=== PATIENT | male | born 1980 | race Caucasian/White ===

== ENCOUNTER → 2023-05-27 13:14 | Outpatient (BNVA) | payer BC, MEDICAID, SELFPAY | PROVIDERS: Referring Provider Nurse Practitioner Family; Visit Provider Nurse Practitioner Family | DX: M79.641 Pain in right hand (principal); M67.89 Other specified disorders of synovium and tendon, multiple sites | CPT/HCPCS: 73130 ==

== ENCOUNTER 2023-05-27 13:41 | Outpatient (CLI) | payer BC, MEDICAID, SELFPAY ==
--- NOTE | 2023-05-27 13:55 | XR_ITS ---
WS: [id number] Exam: XR cervical spine 3V* [id number] Date/Time of Exam: 05/27/2023 2:08 PM Reason For Exam: CERVICALGIA No fracture or dislocation. Straightening and slight reversal of the normal cervical lordosis. Disc s paces are preserved. Paraspinal soft tissues are unremarkable. The odontoid is intact. Minimal degene rative facet change. XR/XR cervical spine 3V* [id number] IMPRESSION: 1. Straightening of the C-spine and minimal facet DJD. 2. No fracture or other significant finding.
== END 2023-05-27 13:42 | disposition home or self-care (01) ==
PROVIDERS: PCP Nurse Practitioner Family; Visit Provider Nurse Practitioner Family
DX: M47.812 Spondylosis without myelopathy or radiculopathy, cervical region (principal); M54.2 Cervicalgia
CPT/HCPCS: 72040

== ENCOUNTER 2023-06-09 08:22 | Outpatient (CLI) | payer BC, MEDICAID, SELFPAY ==
--- NOTE | 2023-06-09 08:37 | US_ITS ---
WS: [id number] TESTICULAR ULTRASOUND HISTORY: BENIGN TUMOR OF TESTICLE COMPARISON: None available. TECHNIQUE: Real-time and color Doppler imaging or utilized to perform a testicular ultrasound. Right testicle: 4.7 cm x 3.4 cm x 2.2 cm. Normal size and echogenicity. No mass or torsion. Normal color Doppler is present throughout. Systolic and diastolic velocities are both present. No significant hydrocele. Right epididymis: Large cyst superior to the RIGHT testicle consistent with a spermatocele. Cyst case ures 4.5 x 2.1 x 4.8 cm. Left testicle: 4.4 cm x 2.8 cm x 2.1 cm. Normal size and echogenicity. No mass or torsion. Normal color Doppler is present throughout. Systolic and diastolic velocities are both present. No significant hydrocele. Left epididymis: Normal epididymis with no increased vascularity. US/US scrotum [id number] IMPRESSION: 1. No testicular mass or torsion. 2. Large cyst near the epididymal head. Most consistent with a spermatocele.
--- NOTE | 2023-06-09 08:45 | MR_ITS ---
WS: [id number] MRI OF THE RIGHT HAND WITHOUT GADOLINIUM ENHANCEMENT. INDICATION: Hand laceration TECHNIQUE: Coronal T1, coronal STIR, axial T1, axial T2, sagittal T2 fat sat, coronal 3-D FSPGR, and multiplanar post gadolinium imaging with fat saturation technique. FINDINGS: Some images degraded by patient motion. Palpable marker overlying the area of interest at the level o f the proximal metacarpals at the level of the 3rd digit. Mild soft tissue edema deep to the palpable marker. No drainable fluid collections. Mild edema involving the 2nd 3rd and 4th extensor compartmen t tendons with a small amount of edema along the extensor retinaculum. Extensor digitorum and indices deep to the palpable marker is indistinct suspicious for tendon injury in this area. The mid and dis wendy tendons 2nd 3rd and 4th metacarpal insertions appear intact. Recommend clinical correlation with area of injury. The more proximal extensor compartment tendons are not included on this examination. Palpable marker at the edge of the [id number]. Mild tenosynovitis along the underlying tendon sheaths. Normal anatomic alignment. Normal visualized carpal tunnel. No other suspicious findings. No acute fractures. Normal metacarpals . Normal visualized digits. MR/MR hand RT wo/w con [id number] IMPRESSION: Motion degrades some images. 1. Palpable marker overlying the base of the 3rd metatarsal dorsally. Small am ount of underlying subcutaneous edema and trace fluid along the extensor retina culum. 2. Extensor digitorum and indices deep to the palpable marker is indistinct powell spicious for tendon injury in this area. The mid and distal tendons 2nd 3rd and 4th metacarpal insertions appear intact. Recommend clinical correlation with a ezekiel of injury. 3. Tenosynovitis along the extensor compartment tendon sheaths. 4. No drainable abscess or fluid collection. 5. No visualized fractures.
[2023-06-09] MEDS: gadobenate dimeglumine 20 mL vial IV (09:51)
== END 2023-06-09 08:23 | disposition home or self-care (01) ==
PROVIDERS: PCP Nurse Practitioner Family; Visit Provider Nurse Practitioner Family
DX: S61.411A Laceration without foreign body of right hand, initial encounter (principal); X58.XXXA Exposure to other specified factors, initial encounter; R60.0 Localized edema; M65.9 Synovitis and tenosynovitis, unspecified; D29.20 Benign neoplasm of unspecified testis; N50.3 Cyst of epididymis
CPT/HCPCS: 73220; 76870; A9577

== ENCOUNTER 2023-07-15 10:04 | Day surgery (SDC) | payer BC, MEDICAID, SELFPAY ==
[2023-07-14 10:11] VITALS: BMI 21.5
[2023-07-15] VITALS (23 sets, daily range): BP systolic 118–158; BP diastolic 57–88; PULSE 53–79; RESP 15–17; TEMP 36.8–37; O2SAT 96–100
[2023-07-15] MEDS: ketorolac 30 mg/mL INJ IVP (10:24)
[2023-07-15] MEDS: acetaminophen 1,000 MG/100 ML PIGGYBACK 400 MG IV (10:24)
[2023-07-15] MEDS: sodium chloride 0.9% 1,000 ML 30 ML IV (10:25)
--- NOTE | 2023-07-15 10:35 | W.PM.OPSUD ---
Surgery/Procedure H&P Update DATE OF PROCEDURE: July 15, 2023 DATE H&P PERFORMED: 07/02/23 CHANGES TO PREVIOUS DOCUMENTATION: None. No change in HPI visit from 07/02/2023. Patient has right hand laceration with extensor tendon injury plan for right hand laceration exploration with extensor tendon repair versus extensor tendon transfer versus autograft repair. Patient understands risk benefits complication alternatives with surgery and through shared decision-making elects proceed with surgical intervention all questions answered at this time. Patient will have this procedure performed under local anesthesia in order to help thoroughly assess his extensor tendon function and durability of repair. PREOP DIAGNOSIS: right hand laceration with extensor tendon injury PRIMARY INDICATION FOR PROCEDURE: Right hand laceration with extensor tendon injury PLANNED PROCEDURE: Operation Date: 07/15/23 12:25 Proposed Procedures p Right hand laceration exploration,Tenolysis 64547/Extensor tendon repair versus tendon transfer versus autograft repair 80922,M67.89(Right) - DO alma Chang Extensor tendon repair versus tendon transfer versus autograft repair(Right) - Johann Wilkes DO
--- NOTE | 2023-07-15 10:50 | P.ANESASSM_ITS ---
Pre-Anesthetic Assessment Height/Weight: Height 1.78 m Weight 68.039 kg Temp Pulse Resp BP Pulse Ox O2 Del Method 98.2 F 61 16 120/79 98 Room Air 07/15/23 10:10 07/15/23 10:10 07/15/23 10:10 07/15/23 10:10 07/15/23 10:10 07/15/23 10:26 Preop Diagnosis: right hand laceration with extensor tendon injury Operation Date: 07/15/23 12:25 Proposed Procedures p Right hand laceration exploration,Tenolysis 76883/Extensor tendon repair versus tendon transfer versus autograft repair 39180,M67.89(Right) - Johann Staci tt, DO s Extensor tendon repair versus tendon transfer versus autograft repair(Right) - Johann Sac, DO Familial anesthetic complications: none Was Beta Gracy taken within 24 hours: N/A Was Clonidine taken within 24 hours: N/A Last intake: Intake Last Liquid Date 07/15/23 Last Liquid Time 22:30 Last Solid Date 07/14/23 Last Solid Time 22:30 Social No alcohol and No tobacco Exam alert, oriented x 3, clear to auscultation bilaterally and regular rate & rhythm Airway Mallampati: Class I Dentition: other (none) Anesthetic Plan ASA status: 1 Anesthesia: Local Only Risk of > 500 ml blood loss (7ml/kg in children): No Medications/Allergies Home Medications Medication Instructions Recorded Confirmed Last Taken Type diclofenac sodium 75 mg 75 mg PO BID 05/27/23 07/14/23 07/14/23 History tablet,delayed release tizanidine 4 mg capsule 4 mg PO Q8H PRN Pain 05/27/23 07/14/23 07/14/23 History hydrocodone 5 mg-acetaminophen 325 1 tab PO Q6H PRN pain 5 days #20 07/15/23 Unknown Rx mg tablet tabs ondansetron 4 mg disintegrating 4 mg PO Q8H PRN nausea and 07/15/23 Unknown Rx tablet vomiting 3 days #9 tabs Allergies Allergy/AdvReac Type Severity Reaction Status Date / Time No Known Allergies Allergy Verified 07/15/23 10:16 Current Medications Generic Name Dose Route Start Last Admin Trade Name Freq PRN Reason Stop Dose Admin Sodium Chloride 1,000 mls @ 30 mls/hr 07/15/23 10:15 07/15/23 10:25 Sodium Chloride 0.9% IV 07/16/23 10:14 30 mls/hr .Q24H JULIA Administration PFSH Anesthesia Social History Smoking and tobacco status: current every day smoker Alcohol intake: current Alcohol intake frequency: few times a month Data Anesthesia Cardiac Studies: No Data to Display
[2023-07-15] MEDS: ceFAZolin 2,000 MG in sodium chloride 0.9% (plus) 50 ML 100 MG IV (12:17)
[2023-07-15] MEDS: ROPivacaine 0.5% SDV 30 mL 150 MG INJECTION (12:50)
[2023-07-15] MEDS: lidocaine-epi 1% 20 mL INJ INJECTION ×2 (12:50→14:35)
[2023-07-15] MEDS: sodium bicarbonate 4.2% 0.5 mEq/mL SDV 5mL INTRADERMA (12:50)
--- NOTE | 2023-07-15 13:34 | SUR.OPER ---
Family Notified Of Patient's Status Via Phone.
[2023-07-15] MEDS: HYDROcodone-acetaminophen 5-325 mg Tablet 1 TAB PO (15:18)
--- NOTE | 2023-07-15 15:22 | P.OP_ITS ---
Brief Operative Note Date of procedure: 07/15/23 Pre-op diagnosis: Right hand laceration with extensor tendon injury Post-op diagnosis: same (Zone 6 extensor tendon injury of EIP, EDC to middle and ring finger) Procedure Done: Right hand laceration exploration with irrigation and debridement (15 cm x 5 cm x 1 cm) Right hand extensor tendon tenolysis of extensor digitorum comminus to index, middle, ring, small fingers Right hand extensor tendon tenosynovectomy and scar tissue excision of extensor digitorum comminus to index, middle, ring, small fingers Right hand zone 6 extensor tendon repair middle finger extensor digitorum comminus Right hand zone 6 extensor tendon tenodesis repair right ring finger extensor digitorum comminus Right wrist and hand volar blocking splint applied Surgeon: Johann Wilkes Estimated blood loss (mL): 10 Complications: None Post-op Plan: Patient taken to PACU in stable condition recovering well pain controlled. Patient will receive appropriate discharge structure as well as pain medication postoperatively. We will be under extensor tendon repair protocol per OT hand therapy. At this point time maintain volar blocking splint until 2-week follow- up continue nonweightbearing at this time. Patient understands agrees to current plan. Questions answered. Follow-up in the office in 2 weeks. Maintain dressing until follow-up. Condition: stable Disposition: same day Coding Level of Care Code Acute Code for Chg Myles
--- NOTE | 2023-07-15 15:22 | PM.OP ---
Operative Report Date of procedure: July 15, 2023 Pre-op diagnosis: Right hand laceration zone 6 with extensor tendon injury Post-op diagnosis: Same Excessive extensor tendon adhesions as well as synovitis of the EDC to the index middle ring and small finger Zone 6 extensor tendon injury to EIP and EDC Middle finger and EDC to Ring finger Post-op findings: See operative report narrative Procedure done: Right hand laceration exploration with irrigation and debridement (15 cm x 5 cm x 1 cm) Right hand extensor tendon tenolysis of extensor digitorum comminus to index, middle, ring, small fingers Right hand extensor tendon tenosynovectomy and scar tissue excision of extensor digitorum comminus to index, middle, ring, small fingers Right hand zone 6 extensor tendon repair middle finger extensor digitorum comminus Right hand zone 6 extensor tendon tenodesis repair right ring finger extensor digitorum comminus Right wrist and hand volar blocking splint applied Implants: Arthrex 4-0 FiberWire 5-0 Prolene suture Surgeon: Johann Wilkes DO Anesthesia: Local (Wide-awake under local anesthesia) Estimated blood loss: 10 mL No tourniquet was used IV fluids: 1000 mL Complications: None Findings: See operative report narrative Condition: stable Disposition: same day Brief History: Patient is a pleasant 42-year-old male who presents to the office over 2 months out from a right hand extensor tendon injury. It was seen and evaluated in outside emergency department facility and was subsequently underwent bedside irrigation debridement as well as closure he was able to make a fist and extend his fingers at that time however patient had concern of possible tendon injury as he felt like he could see a tendon at the base of his incision. He subsequently went on to heal this incision with no signs of infection however he started to notice significant loss of function of his middle and his ring finger as result he followed up in orthopedic office was seen by our nurse practitioner MRI showed concerning findings for possible tendon injury. We talked about his treatment options in detail saw and evaluated patient he has inability to isolate and extend his middle finger on his own as well as significant weakness of the ring finger. We talked about his treatment options and through shared decision making he elects to proceed with laceration exploration with irrigation and debridement and possible extensor tendon repair. Given he has fairly decent function and the chronicity of his injury would recommend a surgery or wide-awake under local anesthesia to help with visualization as well as appropriate repair and connection with the patient actively able to stress repair as well as to assess repair and tenodesis. He understands the ins and outs procedure risk benefits complication alternatives with surgery which proceed with surgical intervention all questions answered. Procedure: Patient was seen evaluated in the preoperative holding area. Consent was reviewed and signed with patient correct extremity was then subsequently marked. He agreed to proceed with wide-awake under local anesthesia to help assist in his repair. Once cleared for surgery was taken back to the operative suite he then was kept onto a hospital gurney and armboard applied to the right upper extremity. He was monitored by her nursing staff but no anesthesia was given systemically. We then subsequently prepped and draped the right upper extremity in standard orthopedic fashion. Patient had a nonsterile tourniquet applied to the right upper arm if needed for hemostasis. Final timeout performed. Patient received appropriate preoperative antibiotics. Patient then subsequently underwent local anesthesia to the right wrist and hand and this was allowed appropriately set up. Once appropriately anesthetized and confirmed we then proceeded with a standard Gera incision extending his standard oblique 1 over zone 6 stenting this proximally as well as distally for full visualization and [id number]. We will maintain exact hemostasis during this dissection he tolerated this procedure well without any issues. Sharp scalpel incision was made through skin I then switched to Littler dissection scissors I protected and identified any neurovascular structures were protected throughout the case. I then came down directly over and extensive amount of adhesions and scar tissue as well as tenosynovitis of the dorsal aspect of the hand over zone 6 where the extensor tendon injury was. I spur started off with identifying the index finger the index finger was found to have the EDC was completely intact however there was a complete severance of the EIP with significant retraction noted into the forearm. It was determined at this point that I was unable to perform any primary repair and he had excellent function of his index finger as he was able to flex and extend his index and isolated fashion and the EIP was left alone. At this point in time the extent of my laceration exploration was 15 cm x 5 cm x 1 cm I performed an extensive irrigation and debridement of this area which include excision of skin and subcutaneous tissue fascia as well as tendon. Once the entire wound bed was under full exposure then carried on with my dissection. Patient was found to have excessive scar tissue and adhesions throughout the dorsal hand tendons. At this point in time I then performed a tenolysis as well as T-Note synovectomy of the EDC tendons to the index middle ring and small fingers. These while asking the patient to flex and extend the fingers were significantly adhered and once I utilized dissection scissors as well as sharp scalpel excision with [place] blade was able to perform tenolysis and tenosynovectomy to release these adhesions and allow appropriate mobility and gliding of the extensor tendons. I then focused my attention towards the middle finger which was patient's main area of concern. Patient was found to have a complete zone 6 extensor tendon laceration there was an area of scar tissue that is trying to connect the retracted proximal end from the distal end. I then appropriately mobilized the proximal and distal ends of the extensor tendon EDC to the middle finger. Patient had retracted right to the level of the dorsal wrist crease over the retinaculum. Unfortunately I did have to incise the retinaculum dorsally in order to retrieve this tendon proximally kept this under tension to allow for slow tendon excursion which patient tolerated well. At this point it was evident I was able to perform an end-to-end repair. I freshened up the tendon ends and then in standard core strand fashion performed a standard 4 core strand suture fixation as well as an additional mattress stitch and then performed a epitendinous stitch core strand was performed with 4-0 FiberWire Arthrex. Once this was repair was done I was able to have the patient actively flex and extend his middle finger and he had isolated control of this with no issues. I did have to further my dissection within the extensor tendon retinaculum to help release any adhesions of the EDC to the ring finger that was adhered to the middle finger to hopefully keep from any excessive tendon bunching. Once this tenolysis and Minnie synovectomy was performed I then turned my attention towards the ring finger EDC tendon. There is a small EDC tendon laceration roughly over 50% of the EDC to the ring finger. There was given the tendon stretch I had to to repair to the EDC to the middle finger there was some laxity of the ring finger and as a result I then utilized a hemostat and performed a tenodesis by rolling the tendon around the area of the 50% repair and then utilized 4-0 FiberWire to perform a tenodesis repair of the right ring finger to have appropriate finger cascade and tensioning. This was performed under patient's direct visualization and this then subsequently accommodated for appropriate tendon tensioning throughout the cascade of all of his fingers. This was then performed and then stressed and patient had excellent control of the ring finger. Next finalize my tenolysis and tenosynovectomy of the EDC to the small finger as well as extensor digiti minimi which allowed for appropriate tendon gliding and excursion there is no evidence of tendon injury here. At this point in time I was able to have patient lay his hand on the ground isolate and individually lift his index middle ring and small fingers with excellent control and well maintenance of my repairs. This completed the procedure. Wound was then thoroughly irrigated hemostasis was found to be in satisfactory with bipolar electrocautery. I then subsequently utilized 0 Vicryl suture to repair the extensor tendon retinaculum to prevent from bowstringing I was able to have the patient gently glide his fingers during this repair to make sure I did not repair or cause any restrictions to the extensor tendons. At this point time the skin was then closed in layered fashion with interrupted horizontal mattress nylon sutures. Patient was then cleaned and incision was covered with Xeroform 4 x 4's Curlex soft roll and a volar blocking splint was then subsequently applied. Patient was then awakened taken to PACU in stable condition. Disposition: Patient taken to PACU in stable condition recovering well pain controlled. Patient received appropriate discharge directions as well as pain medication postoperatively. Patient will be nonweightbearing to the right upper extremity. Patient to follow extensor tendon repair protocol per OT hand therapy. Patient to follow-up with us in the office in 2 weeks. Patient understands agrees with current plan. Questions answered.
== END 2023-07-15 15:39 | disposition home or self-care (01) ==
PROVIDERS: PCP Nurse Practitioner Family; Visit Provider Student in an Organized Health Care Education/Training Program
PROC: (CPT 26145; principal; 2023-07-15 12:15)
DX: S61.210A Laceration without foreign body of right index finger without damage to nail, initial encounter (principal); S61.212A Laceration without foreign body of right middle finger without damage to nail, initial encounter; S61.214A Laceration without foreign body of right ring finger without damage to nail, initial encounter; S61.216A Laceration without foreign body of right little finger without damage to nail, initial encounter; W26.8XXA Contact with other sharp object(s), not elsewhere classified, initial encounter; F17.200 Nicotine dependence, unspecified, uncomplicated
CPT/HCPCS: 26145 ×3; 26418; 26445 ×3; 26471; J0131; J0690; J1885; J2704; J2795; J7030

== ENCOUNTER 2023-08-03 06:00 | Outpatient (CLI) | payer BC, MEDICAID, SELFPAY | END 2023-08-03 06:01 | disposition home or self-care (01) | LOC: SOT 08-04 08:09 | PROVIDERS: PCP Nurse Practitioner Family; Visit Provider Student in an Organized Health Care Education/Training Program | DX: Z47.89 Encounter for other orthopedic aftercare (principal); Z98.890 Other specified postprocedural states | CPT/HCPCS: 97110; 97140; 97165; 97760; L3806; L3923 ==

== ENCOUNTER 2023-11-23 14:10 | Outpatient (CLI) | payer BC, MEDICAID, SELFPAY ==
--- NOTE | 2023-11-23 14:13 | XR_ITS ---
WS: [id number] Exam: XR lumbar spine min 4V [id number] Date/Time of Exam: 11/23/2023 2:28 PM Reason For Exam: M54.16 - Radiculopathy, lumbar region No fracture or dislocation. No flexion or extension instability. Disc spaces are preserved. Posterior elements are normal in appearance. No significant scoliosis. IMPRESSION: 1. No flexion or extension instability. Negative.
--- NOTE | 2023-11-23 14:30 | MR_ITS ---
WS: [id number] MRI LUMBAR SPINE NONCONTRAST TECHNIQUE: Sagittal T1, T2 and STIR imaging. Axial T1 and T2 imaging. CLINICAL INFORMATION: M54.16 - Radiculopathy, lumbar region COMPARISON: None. FINDINGS: Mild lumbar curve. No acute compression. Disc bulging worse at L5-S1 with a small annular fissure. L1-L2: Normal. L2-L3: Mild facet arthropathy. Spinal canal and foramen are patent. L3-L4: Mild facet arthropathy. Mild annular bulging. Spinal canal and foramen are patent. L4-L5: Mild annular bulging with slight effacement of ventral thecal sac. Slight impingement traversi ng L5 nerve roots bilaterally. Mild facet arthropathy. Foramen are patent. L5-S1: RIGHT paracentral disc protrusion impinges the traversing RIGHT S1 nerve root in the subarticu lar recess. Small annular fissure. Small RIGHT foraminal protrusion with mild RIGHT proximal foramina l narrowing. LEFT foramen is patent. Mild facet arthropathy. Visualized pelvic bony structures: Normal. Paravertebral soft tissues: Normal. A few tiny disc protrusions in the cervical spine at C3-C4 C4-C5 C5-C6 and C6-C7 with mild central ca nal stenosis seen on the quality audit representative imaging. IMPRESSION: 1. Mild lumbar curve. No acute compression. 2. RIGHT paracentral disc protrusion L5-S1 impinges the traversing RIGHT S1 nerve root in the subart icular recess. Mild RIGHT proximal foraminal narrowing. Small annular fissure. 3. Mild annular bulging L4-5 slightly impinges the traversing L5 nerve roots in the subarticular rec ess. 4. Mild facet arthropathy L3-L4 and L4-L5. 5. A few tiny disc protrusions in the cervical spine at C3-C4 C4-C5 C5-C6 and C6-C7 with mild centra l canal stenosis seen on the quality audit representative imaging. This could be further evaluated with cervical spine MRI.
== END 2023-11-23 14:11 | disposition home or self-care (01) ==
LOC: RAD 14:11
PROVIDERS: PCP Nurse Practitioner Family; Visit Provider Anesthesiology Pain Medicine
DX: M51.17 Intervertebral disc disorders with radiculopathy, lumbosacral region (principal); M48.061 Spinal stenosis, lumbar region without neurogenic claudication; M51.16 Intervertebral disc disorders with radiculopathy, lumbar region; M47.26 Other spondylosis with radiculopathy, lumbar region; M48.02 Spinal stenosis, cervical region; M50.21 Other cervical disc displacement, high cervical region; M50.221 Other cervical disc displacement at C4-C5 level; M50.222 Other cervical disc displacement at C5-C6 level; M50.223 Other cervical disc displacement at C6-C7 level
CPT/HCPCS: 72110; 72148

== ENCOUNTER → 2024-02-10 09:59 | Outpatient (BNVA) | payer BC, MEDICAID, SELFPAY | PROVIDERS: PCP Nurse Practitioner Family; Visit Provider Anesthesiology Pain Medicine | DX: M47.892 Other spondylosis, cervical region (principal); M54.2 Cervicalgia; G89.29 Other chronic pain | CPT/HCPCS: 72040 ==

== ENCOUNTER → 2024-05-12 10:19 | Outpatient (BNVA) | payer BC, MEDICAID, SELFPAY | PROVIDERS: PCP Nurse Practitioner Family; Visit Provider Student in an Organized Health Care Education/Training Program | DX: M75.41 Impingement syndrome of right shoulder; M75.42 Impingement syndrome of left shoulder; G56.21 Lesion of ulnar nerve, right upper limb; G56.01 Carpal tunnel syndrome, right upper limb | CPT/HCPCS: 73030 ==

== ENCOUNTER → 2024-09-21 06:23 | Day surgery (SDC) | payer BC, MEDICAID, SELFPAY ==
[2024-09-21] VITALS (9 sets, daily range): BP systolic 131–168; BP diastolic 77–105; PULSE 58–78; RESP 16–18; TEMP 36.2–36.4; O2SAT 95–99; BMI 22.2
--- NOTE | 2024-09-21 06:50 | W.PM.OPSFHP ---
Same Day Surgery H&P Indication for Procedure/HPI DATE OF PROCEDURE: September 21, 2024 CHIEF COMPLAINT/INDICATIONFOR SURGICAL PROCEDURE: Right cubital tunnel syndrome PREOP DIAGNOSIS: Right cubital tunnel syndrome PLANNED PROCEDURE: Operation Date: 09/21/24 08:00 Proposed Procedures p Cubital Tunnel Release(Right) - Johann Katrin, DO s Ulnar Nerve Transposition(Right) - Johann Van Buren, DO Medications/Allergies* Home Medications Medication Instructions Recorded Confirmed Type gabapentin 300 mg capsule 300 mg PO BID pain 09/20/24 09/20/24 History propranolol 40 mg tablet 40 mg PO BID 09/20/24 09/20/24 History Allergies/Adverse Reactions Allergy/AdvReac Type Severity Reaction Status Date / Time No Known Allergies Allergy Verified 09/20/24 16:09 Pertinent History/Comorbid Conditions* Social History Smoking and tobacco/nicotine status: former use of tobacco/nicotine Alcohol intake: current Alcohol intake frequency: few times a month Pertinent Exam Findings alert, oriented x 3, operative site marked and procedure specific exam findings Please refer to detailed orthopedic examination on 08/11/2024 on the right upper extremity: Examination of the right hand: Right Hand exam-negative Tinel's, negative phalens, no thenar atrophy or weakness Full range of motion in fingers and wrist and fingers are warm and well-perfused with normal cap refill under 2 seconds. Radial pulse 2+, intrinsic muscle weakness noted. Elbow exam-Positive Tinel's iglesia Recommendations Surgery/Procedure today Other Plans: Plan to proceed to the OR today for right cubital tunnel release with possible ulnar nerve transposition. Patient understands the ins and outs of procedure the risk benefits complication alternatives surgery and through shared decision-making elects proceed with surgical intervention at this time. All questions answered Coding Level of Care Code Acute Code for Xenia Bueno
[2024-09-21] MEDS: scopolamine 1.5 Patch 1 PATCH TRANSDERMA (06:53)
[2024-09-21] MEDS: acetaminophen 1,000 MG/100 ML PIGGYBACK 400 MG IV (06:53)
[2024-09-21] MEDS: ketorolac 30 mg/mL INJ IVP (06:53)
[2024-09-21] MEDS: sodium chloride 0.9% 1,000 ML 30 ML IV (06:56)
--- NOTE | 2024-09-21 07:20 | ANES.PREANE2 ---
Pre-Anesthetic Assessment Height/Weight: Height 5 ft 10 in Weight 155 lb Temp Pulse Resp BP Pulse Ox O2 Del Method 97.6 F 78 18 131/77 98 Room Air 09/21/24 06:42 09/21/24 06:42 09/21/24 06:42 09/21/24 06:53 09/21/24 06:42 09/21/24 06:46 Preop Diagnosis: Right cubital tunnel syndrome Operation Date: 09/21/24 08:00 Proposed Procedures p Cubital Tunnel Release(Right) - Johann Katrin, DO s Ulnar Nerve Transposition(Right) - Johann Cochran, DO Was Beta Gracy taken within 24 hours: N/A Was Clonidine taken within 24 hours: N/A Last intake: Intake Last Liquid Date 09/20/24 Last Liquid Time 22:30 Last Solid Date 09/20/24 Last Solid Time 22:30 Social No alcohol and No tobacco Exam alert, oriented x 3, clear to auscultation bilaterally and regular rate & rhythm Airway Submandibular: within normal limits Cervical ROM: within normal limits Mallampati: Class II Dentition: full Anesthetic Plan ASA status: 2 Anesthesia: General and Regional (specify below) Other: No prior issues with anesthesia NPO since yesterday Hypertension on propranolol. Taken yesterday. Preop BP 131/77 Quit smoking 6 months ago METs greater than 4 Plan for general anesthesia with preop nerve block Medications/Allergies Home Medications Medication Instructions Recorded Confirmed Last Taken Type custom molded hand splint right #1 ea 08/03/23 08/11/24 Unknown Rx gabapentin 300 mg capsule 300 mg PO BID pain 09/20/24 09/20/24 09/20/24 History propranolol 40 mg tablet 40 mg PO BID 09/20/24 09/20/24 09/20/24 History hydrocodone 5 mg-acetaminophen 325 1 tab PO Q6H PRN pain 7 days #28 09/21/24 Unknown Rx mg tablet tabs Allergies Allergy/AdvReac Type Severity Reaction Status Date / Time No Known Allergies Allergy Verified 09/20/24 16:09 Current Medications Generic Name Dose Route Start Last Admin Trade Name Freq PRN Reason Stop Dose Admin Sodium Chloride 1,000 mls @ 30 mls/hr 09/21/24 06:30 09/21/24 06:56 Sodium Chloride 0.9% IV 09/22/24 06:29 30 mls/hr .Q24H JULIA Administration PFSH Anesthesia Social History Smoking and tobacco/nicotine status: former use of tobacco/nicotine Alcohol intake: current Alcohol intake frequency: few times a month Data Anesthesia Cardiac Studies: No Data to Display
--- NOTE | 2024-09-21 07:30 | ANES.PROC ---
Anesthesia Procedures Procedure/Date: 09/21/24 Nerve Block ^: Nerve Block 1: Main Anesthesia: other (100mcg fentanyl, 2mg versed) Time Out Performed: Yes Nerve block location: supraclavicular Anesthesia monitors applied: pulse oximetry, EKG, BP cuff and oxygen Nerve block position: supine Anesthetic Used: ropivicaine 0.5% Amount of anesthesia used (mL): 25 Ultrasound used to: recognize landmarks Nerve Stimulator Used?: Yes Interscalene/Femoral BLK: other needle (pjunk 4inch) Injection: neg aspiration of heme Patient Tolerated Procedure: well Complications: none
[2024-09-21] MEDS: ceFAZolin 2,000 MG in sodium chloride 0.9% (plus) 50 ML 100 MG IV (07:42)
[2024-09-21] MEDS: ROPivacaine 0.5% SDV 30 mL 25 MG INJECTION (08:23)
[2024-09-21] MEDS: lidocaine 1% 10 ML INJ 5 ML INJECTION (08:24)
--- NOTE | 2024-09-21 09:30 | P.BOP_ITS ---
Date of Procedure: 09/21/2024 Surgeon: Johann Wilkes DO Dry Heat Cabinet Attendant(s): None Procedure(s) performed: Right cubital tunnel release Right elbow ulnar nerve transposition Right ulnar nerve neurolysis Findings of the procedure(s): Patient was found to have subluxating ulnar nerve on releasing of the cubital tunnel underwent right cubital tunnel release and right ulnar nerve transposition without issues or complications. patient placed in a posterior splint with [place] drain is on in place we will get him in with our therapy OT hand department to have splint taken down [place] dressing removed and Long-arm posterior elbow splint bent at 90 degrees. Strict no elbow range of motion for 10 to 14 days Estimated blood loss: 10mL Specimen(s) removed: None Post-operative diagnosis: Right cubital tunnel syndrome with subluxating ulnar
--- NOTE | 2024-09-21 09:33 | PM.OP ---
Operative Report Date of procedure: September 21, 2024 Surgeon: Johann Wilkes DO Procedure: Preoperative diagnosis right cubital tunnel syndrome Post-op diagnosis:? 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 Patient had EMG findings consistent with this.? ?On my examination in the office patient findings are consistent with this preoperative diagnosis. We had detailed discussion in office about continued nonoperative intervention versus operative intervention.? Patient understands the risk benefits complications alternatives to surgical and nonsurgical treatment options.? Patient understands the risks include but not limited to make it better, make it worse, infection, permanent injury to nerve, decreased function and sensation to the hand with persistent weakness.? Given these risks patient understands and agrees to proceed with current plan.? Patient elects to proceed with a right?cubital tunnel release and possible ulnar nerve?transposition. all questions answered. Procedure: Patient was seen and evaluated in the preoperative holding area.? The consent that was filled out in office was reviewed with patient and confirmed to be appropriate for right cubital tunnel release and possible ulnar nerve?transposition.? Correct extremity was then marked.? Patient was seen evaluated by the preoperative team as well as anesthesia department.? Once cleared for surgery patient was then taken to the operative suite and?transported onto the operative table all bony prominences were well-padded and patient was secured to the table.? Right upper extremity was placed on an armboard.? Patient then underwent anesthesia per the anesthesia department. The right upper extremity tourniquet was applied. Patient's right upper extremity was then prepped and draped in standard orthopedic fashion. At This point a final timeout was performed. Patient received appropriate preop antibiotics. Esmarch tourniquet was used to exsanguinate the operative extremity and was insufflated to 250 mmHg.? Standard curvilinear incision was made centering over the ulnar nerve between the medial epicondyle and olecranon process.? Sharp scalpel excision through skin and subcutaneous tissue was performed.? Once I encountered subcutaneous tissue I then utilized dissection scissors to spread in the path of the [facility] and care was made to protect any nerve branches throughout this case.? I then utilized a scalpel to complete my dissection directly on over to the flexor pronator mass and elevated this fat tissue directly off of the fascia.? I started my dissection of the ulnar nerve the nerve proximally.? Once identified I then utilized Littler dissection scissors and decompress the nerve completely and proximally and utilized blunt dissection to make sure there was no entrapment proximally..? Once decompressed proximally I then traced the nerve distal through Chavis's ligament and as it entered the FCU fascia aponeurosis and completed by decompression and ulnar nerve neurolysis distally.? The nerve was completely released in situ no areas of entrapment I was able to place my finger distally and proximally with no areas entrapment along the nerve.? At this point in time by in situ release was completed I then subsequently took the elbow through range of motion and subluxation was noted over the medial epicondyle and plan for ulnar nerve?transposition was made.? ?I thoroughly irrigated the nerve throughout the case to prevent it from drying out. Of note the ulnar nerve had significant irritation and inflammation.? Next while protecting the nerve as well as care to not injure any venous structures I then excised the intermuscular septum proximally with bipolar electrocautery.? This allowed for there to be no entrapment proximally with my?transposition.? Next I then performed my standard Z- flap into the fascia.? This created a large thick fascial band that would be sutured to secure the ulnar nerve when its been?transposed.? Once the incision was made just through the fascia I then mobilized just the fascia and freed the muscle belly off of this.? I then sequentially excised the fascial bands throughout the flexor pronator mass to prevent any type of banded structure irritating the?transposition.? At this point I had only soft tissue and muscle belly with which the ulnar nerve could rest.? I had to do a small excision of the muscle belly distally to create a nice trough for the nerve to lie.? At this point I then mobilized the nerve and this was?transposed into the flexor pronator insertion under the fasica flaps.? There was no evidence of kinking/tethering of the nerve.? this was significantly redundant and lax with no signs of tension or entrapment.? I then utilized a 3-0 Ethibond suture and approximated the fascia flaps that was created and secured with horizontal interrupted mattress stitches.? I was able to place 2 fingers under the repair with no evidence of entrapment and the elbow was taken through range of motion and no areas of entrapment or kinking were noted on the nerve and the nerve was redundant relaxed in all ranges of motion.? This completed my ulnar nerve decompression of the?cubital tunnel as well as ulnar nerve?transposition.? Wound bed was then thoroughly irrigated.? Tourniquet was deflated.? Maintained exact hemostasis with bipolar electrocautery.? Local anesthetic was injected around the incision. I did place a gurpreet drain to prevent hematoma formation. As result the skin was reapproximated with interrupted Vicryl subcutaneous suture 3-0.? I next utilized a running horizontal mattress stitch with 3-0 nylon.? Extremity was then cleaned and the incision was then covered with Xeroform 4 x 4's ABD Curlex and soft roll and a posterior long-arm splint was then applied with an August wrap.? Patient was then awakened from anesthesia and taken to PACU in stable condition. Disposition: Patient taken to PACU in stable condition.? Patient given appropriate discharge instructions as well as pain medication.? We will get Patient in with OT hand therapy for splint takedown dressing change and drain pull in the next 2 days. Patient will see me in office in 2 weeks.? pt understands? if they has any questions they can contact the office.
--- NOTE | 2024-09-21 09:34 | ANE.PACU2 ---
Inpatient post-anesthesia follow up: Airway intact: Yes Vital signs: Temperature 97.1 F Pulse Rate 65 Respiratory Rate 17 Blood Pressure 150/96 Pulse Oximetry 96 Oxygen Delivery Me thod Room Air Oxygen Flow Rate 8 Fraction of Inspir ed Oxygen Hydration adequate: Yes Nausea and vomiting: No Pain level: 1 Mental status: Baseline
--- NOTE | 2024-09-22 12:00 | PM.PN ---
Subjective Subjective: I was contacted by the preoperative nurse shortly following nerve block that patient stated his left arm was getting numb even though the right arm was the surgical extremity. Prior to the procedure timeout was performed, patient said yes when asked if the left arm was the correct arm. Patient's stayed in the room for the procedure. IV was in the left hand but this was covered by the blanket. Patient was given sedation for the procedure but this was after patient's left neck/shoulder was cleaned off with ChloraPrep. I was never corrected by anyone present that the left side was not the correct side. Patient was instructed that we would not be able to offer a nerve block on the right side due to concern for respiratory complications. Surgeon was made aware of this and he made the decision to inject at the surgical site instead. Vitals/I&O/Wt Last Vital Signs Temp 97.1 F L 09/21/24 09:41 Pulse 65 09/21/24 09:41 Resp 17 09/21/24 09:41 BP 150/96 09/21/24 09:41 Pulse Ox 96 09/21/24 09:41 O2 Del Method Room Air 09/21/24 09:41 O2 Flow Rate 8 09/21/24 09:19 Weight last 48 hrs Weight 155 lb Physical Exam Const: COMMON NORMALS: alert Resp: COMMON NORMALS: clear to auscultation bilaterally AUSCULTATION: clear to auscultation bilaterally Neuro: SENSORIUM/ORIENTATION: Yes alert Attestations Medical Necessity Statement*: Surgery Coding Level of Care Code Acute Code for Chg Fwd
== END | disposition home or self-care (01) ==
PROVIDERS: PCP Nurse Practitioner Family; Visit Provider Student in an Organized Health Care Education/Training Program
PROC: (CPT 64718; principal; 2024-09-21 08:00)
PROC: (CPT 64718; 2024-09-21 08:00)
DX: G56.21 Lesion of ulnar nerve, right upper limb (principal); I10 Essential (primary) hypertension; Z87.891 Personal history of nicotine dependence
CPT/HCPCS: 64718; J0131; J0690; J1100; J1171; J1885; J2250; J2405; J2704; J2795; J3010; J7030

== ENCOUNTER 2024-09-22 09:13 | Outpatient (RCR) | payer BC, MEDICAID, SELFPAY | END 2024-10-07 23:59 | disposition home or self-care (01) | LOC: SOT 09:13 | PROVIDERS: Visit Provider Student in an Organized Health Care Education/Training Program | DX: G56.21 Lesion of ulnar nerve, right upper limb (principal) | CPT/HCPCS: 97760; L3763 ==

== ENCOUNTER 2024-10-30 13:57 | Outpatient (CLI) | payer BC, MEDICAID, SELFPAY ==
--- NOTE | 2024-10-30 14:01 | MR_ITS ---
WS: [id number] MRA HEAD TECHNIQUE: Axial 3-D TOF images obtained with axial images and axial, sagittal, and coronal 2-D refor matted images. CLINICAL INFORMATION: CHRONIC MIGRAINE /ENLARGED BRAIN VESSEL COMPARISON: None. FINDINGS: Distal vertebral arteries are patent. Basilar artery is patent. Normal vascularity to the [employer] territo ry bilaterally. Both ICAs are patent at the skull base. Normal vascularity to the EVER and MCA territories bilaterally . Patent anterior communicating artery. No evidence of proximal flow-limiting stenosis. MR/MR angio head wo con [id number] IMPRESSION: Unremarkable intracranial MRA.
== END 2024-10-30 13:58 | disposition home or self-care (01) ==
LOC: RAD 13:58
PROVIDERS: PCP Family Medicine; Visit Provider Psychiatry & Neurology Neurology
DX: G43.909 Migraine, unspecified, not intractable, without status migrainosus (principal)
CPT/HCPCS: 70544

== ENCOUNTER 2025-01-01 15:48 | Outpatient (CLI) | payer BC, MEDICAID, SELFPAY ==
--- NOTE | 2025-01-01 16:00 | MR_ITS ---
WS: [id number] MRI BRAIN WITH AND WITHOUT CONTRAST HISTORY: G43.909 - Migraine, unspecified, not intractable, chronic migraines. COMPARISON: MR angiogram 10/30/2024 TECHNIQUE: Multiplanar imaging performed through the brain with MultiHance 14 ml's IV. No acute infarcts are seen. Johnson-white matter differentiation is well preserved. No prior infarcts. No significant volume loss or atrophy. No susceptibility artifacts or prior lacunar infarcts. Ventricles and extra-axial spaces are normal. Clivus and pituitary gland are normal. Visualized posterior fossa and brainstem are also normal. Postcontrast images are negative for masses or vascular malformations. Dural venous sinuses are normal. Paranasal sinuses: Well aerated with no significant disease. Mastoid air cells: Normal. Calvarium and scalp: Normal. MR/MR head wo/w con [id number] IMPRESSION: 1. No acute infarct or hemorrhage. No remote infarct. 2. No enhancing masses or vascular malformations. Normal dural venous sinuses. 3. No paranasal sinus disease.
[2025-01-01] MEDS: gadobenate dimeglumine 20 mL vial 14 ML IV (16:37)
== END 2025-01-01 15:49 | disposition home or self-care (01) ==
LOC: RAD 15:48
PROVIDERS: PCP Family Medicine; Visit Provider Psychiatry & Neurology Neurology
DX: G43.909 Migraine, unspecified, not intractable, without status migrainosus (principal); M54.2 Cervicalgia
CPT/HCPCS: 70553

== ENCOUNTER 2025-02-09 08:26 | Outpatient (CLI) | payer BC, MEDICAID, SELFPAY ==
--- NOTE | 2025-02-09 08:30 | FL_ITS ---
WS: [id number] FL barium swallow [id number] REASON FOR EXAM: OTHER DYSPHAGIA FLUOROSCOPY TIME: 2min [id number] # OF SPOT FILMS: Multiple FINDINGS: The patient was examined in the upright PA and lateral positions, in the prone RUTH position, the supine position, in the LPO position. The swallowing of barium was monitored fluoroscopically and recorded with multiple rapid sequence spot films. The cervical esophagus demonstrated normal motility. There was no penetration of contrast into the laryngeal vestibule or aspiration. Intermittently a very small Zenker's diverticulum was visualized which did not remain filled. The thoracic esophagus demonstrated normal motility and anatomy. There was no significant hiatal hernia, stricture, or gastroesophageal reflux. FL/FL barium swallow [id number] IMPRESSION: Tiny Zenker's diverticulum in the cervical esophagus. The examination is otherw ise unremarkable.
== END 2025-02-09 08:27 | disposition home or self-care (01) ==
PROVIDERS: PCP Family Medicine; Visit Provider Specialist
DX: R13.19 Other dysphagia (principal); K22.5 Diverticulum of esophagus, acquired
CPT/HCPCS: 74220

== ENCOUNTER 2025-03-20 08:30 | Outpatient (CLI) | payer BC, MEDICAID, SELFPAY ==
--- NOTE | 2025-03-20 08:40 | FL_ITS ---
WS: [id number] Exam: FL barium swallow modifd [id number] Date/Time of Exam: 03/20/2025 8:49 AM Reason For Exam: Other dysphagia Fluoroscopy time: Minutes # of spot films: 1 Modified barium swallow test was performed in conjunction with the speech therapy service. Oropharyngeal phase of swallowing was unremarkable. No significant penetration noted. No aspiration was observed. Generalized esophageal hypomotility was noted. The patient swallowed a barium tablet without significant difficulty however the tablet was retained in the mid esophagus and was propelled into the stomach with additional swallow of pudding consistency barium. FL/FL barium swallow modifd [id number] IMPRESSION: 1. Esophageal hypomotility. 2. No sign of aspiration. A separate report with recommendations will follow from the speech therapy serv ice.
--- NOTE | 2025-03-20 11:00 | MR_ITS ---
WS: [id number] MRA CAROTID WITHOUT AND WITH GADOLINIUM ENHANCEMENT TECHNIQUE: Axial 2-D TOF and gadolinium bolus images obtained with axial images and axial, sagittal, and coronal 2-D reformatted images. CLINICAL INFORMATION: G43.011 - Migraine without aura, intractable, with status... COMPARISON: None. FINDINGS: RIGHT: RIGHT common carotid artery is patent. No significant RIGHT ICA stenosis ICA is patent to the skull base. LEFT: LEFT common carotid artery is patent. No significant LEFT ICA stenosis. LEFT ICA is patent to the skull base. Codominant and patent vertebral arteries bilaterally. Proximal basilar artery is patent. Proximal subclavian arteries are patent. MR/MR angio neck w con* [id number] IMPRESSION: 1. Normal neck MRA
== END 2025-03-20 08:31 | disposition home or self-care (01) ==
PROVIDERS: PCP Family Medicine; Visit Provider Specialist
DX: G43.011 Migraine without aura, intractable, with status migrainosus (principal); R55 Syncope and collapse; I72.9 Aneurysm of unspecified site; R13.19 Other dysphagia; K22.4 Dyskinesia of esophagus
CPT/HCPCS: 70548; 74230; 92611

== ENCOUNTER 2025-03-30 08:31 | Outpatient (CLI) | payer BC, MEDICAID, SELFPAY ==
--- NOTE | 2025-03-30 08:30 | USCV_ITS ---
PriyankchitoYoel Age: 44 Gender: M : 1980 Exam Date: 03/30/2025 08:56 Ordering Phys: Harrison Zarate M.D ([email or web address]) Technologist: Diallo Cummins Exam Location: [facility] [place] Indication: syncope BP: 116 / 75 HR: 56 Rhythm: Sinus Technical Quality: MEASUREMENTS (Male / Female) Normal Values 2D ECHO LV Diastolic Diameter PLAX 4.8 cm 4.2 - 5.9 / 3.9 - 5.3 cm IVS Diastolic Thickness 1.0 cm 0.6 - 1.0 / 0.6 - 0.9 cm IVS Systolic Thickness 1.2 cm LVPW Diastolic Thickness 1.3 cm 0.6 - 1.0 / 0.6 - 0.9 cm LVPW Systolic Thickness 1.7 cm LVOT Diameter 2.2 cm LV Ejection Fraction 2D Teich 62.4 % LV Ejection Fraction MOD 4C 58.5 % LV Ejection Fraction MOD 2C 61.2 % LV Ejection Fraction 2C AL 61.4 % LA Diameter 3.0 cm RA Systolic Volume 4C AL 33.3 ml RA Systolic Volume 4C MOD 34.2 ml LA Sys Volume AL 27.6 cm cubed LA Sys Volume Index AL 14.7 cm cubed/m squared Aorta at Sinotubular Diameter 2.0 cm IVC Diameter 1.2 cm M-MODE LA Ao Ratio MM 0.9 AV Cusp Separation MM 1.8 cm DOPPLER AV Peak Velocity 107.0 cm/s LVOT Peak Velocity 67.0 cm/s AV Area Cont Eq vti 2.5 cm squared AV Area Cont Eq pk 2.3 cm squared MV Peak Velocity 95.0 cm/s MV Area PHT 4.8 cm squared Mitral E to A Ratio 1.5 TV Peak Velocity 243.5 cm/s TR Peak Velocity 252.0 cm/s TR Peak Gradient 25.4 mmHg TR Mean Velocity 183.0 cm/s TR Mean Gradient 15.4 mmHg TR Velocity Time Integral 80.9 cm PV Peak Velocity 78.7 cm/s RV Ejection Time 0.4 s FINDINGS Left Ventricle Normal left ventricular size, systolic function and wall thickness, with no regional wall motion abnormalities. Left ventricular ejection fraction is estimated at 55 %. Grade II/IV diastolic dysfunction, moderately elevated filling pressures. Right Ventricle The right ventricle is normal in size and function. Right Atrium The right atrium is normal in size. Left Atrium The left atrium is normal in size. Mitral Valve Structurally normal mitral valve without significant stenosis or prolapse. There is no mitral regurgitation. Aortic Valve Mild aortic valve calcification. No aortic valve stenosis. Trace aortic valve regurgitation. Tricuspid Valve [id number] tricuspid valve regurgitation. Pulmonic Valve Mild pulmonary valve regurgitation. Pericardium Normal pericardium without effusion. Aorta Normal ascending aorta dimension. IVC The inferior vena cava appears normal. CONCLUSIONS Normal left ventricular size, systolic function and wall thickness, with no regional wall motion abnormalities. Left ventricular ejection fraction is estimated at 55 %. Grade II/IV diastolic dysfunction, moderately elevated filling pressures. [id number] tricuspid valve regurgitation. There is no pericardial effusion. Right atrial pressure is around 5 mm of mercury. Chacha Crandall MD (Electronically Signed) Final Date: 01 Apr 2025 15:30 S
--- NOTE | 2025-03-30 09:38 | CT_ITS ---
WS: [id number] CT NECK TECHNIQUE: Contrast-enhanced CT of the neck with coronal and sagittal reformatted images. CLINICAL INFORMATION: DYSPHAGIA COMPARISON: None. DLP: 142.[address] scans at [facility] use at least one of these dose optimization techniques: automated exposure control; mA and/or kV adjustment per patient size (includes targeted exams where dose is matched to clinical indication); or iterative reconstruction. FINDINGS: Paranasal sinuses and mastoid air cells are well aerated. Normal posterior nasopharynx. Normal parapharyngeal fat. Normal submandibular glands and parotid glands. Normal [place] tonsils. No evidence of supraglottic or glottic mass. Normal subglottic airway. Normal thyroid. Lung apices are well aerated. Paranasal sinuses are well aerated. Mastoid air cells are well aerated. No cervical lymphadenopathy. Straightening of the normal cervical lordosis. Mild spondylitic changes. Mild disc bulging at C3-C4 C4-C5 and C5-C6. Central disc protrusions at these levels results in mild central canal stenosis. This can be followed up with MRI. Slight contact of the cervical cord. Moderate to severe LEFT C5-C6 and LEFT C6-[address]/CT neck w con* [id number] IMPRESSION: 1. Normal salivary glands. 2. No evidence of supraglottic or glottic mass. 3. Spondylitic changes cervical spine with mild central canal stenosis and bon y foraminal narrowing described above. This could be further evaluated with cer vical spine MRI.
[2025-03-30] MEDS: iohexol 350 mg/mL 500 mL Btl (per mL) IV (09:54)
== END 2025-03-30 08:32 | disposition home or self-care (01) ==
LOC: RAD 08:33
PROVIDERS: PCP Family Medicine; Visit Provider Internal Medicine
DX: R13.19 Other dysphagia (principal); R07.9 Chest pain, unspecified; R06.02 Shortness of breath; R55 Syncope and collapse; M47.892 Other spondylosis, cervical region; M48.02 Spinal stenosis, cervical region; M50.31 Other cervical disc degeneration, high cervical region; M50.321 Other cervical disc degeneration at C4-C5 level; M50.322 Other cervical disc degeneration at C5-C6 level; R93.1 Abnormal findings on diagnostic imaging of heart and coronary circulation; I35.8 Other nonrheumatic aortic valve disorders; I07.1 Rheumatic tricuspid insufficiency; I37.1 Nonrheumatic pulmonary valve insufficiency
CPT/HCPCS: 70491; 93306